=== PATIENT | female | born 1970 | race Caucasian/White ===

== ENCOUNTER 2017-06-23 16:18 | Emergency (ER) | payer BC, OTHER ==
--- NOTE | 2017-06-23 17:20 | EDM.PDOC ---
<Saad aBrillas J - Last Filed: 06/23/17 17:19> ED HPI GENERAL MEDICAL PROBLEM - General Chief Complaint: Abdominal Pain Stated Complaint: SEVERE ABDOMINAL/BACK PAIN Time Seen by Provider: 06/23/17 17:10 - History of Present Illness INITIAL COMMENTS - FREE TEXT/NARRATIVE: HISTORY AND PHYSICAL: History of present illness: Patient 46-year-old female presents with concern of epigastric and right upper quadrant pain it's been intermittent over last 4-6 months she's had proximal 77 episodes no fever chills nausea vomiting or other complaints today's episode has improved since arrival. Review of systems: As per history of present illness and below otherwise all systems reviewed and negative. Past medical history: As per history of present illness and as reviewed below otherwise noncontributory. Surgical history: As per history of present illness and as reviewed below otherwise noncontributory. Social history: No reported history of drug or alcohol abuse. Family history: As per history of present illness and as reviewed below otherwise noncontributory. Physical exam: HEENT: Atraumatic, normocephalic, pupils reactive, negative for conjunctival pallor or scleral icterus, mucous membranes moist, throat clear, neck supple, nontender, trachea midline. Lungs: Clear to auscultation, breath sounds equal bilaterally, chest nontender. Heart: S1S2, regular, negative for clicks, rubs, or JVD. Abdomen: Soft, nondistended, mild tenderness in the epigastric right upper quadrant to deep palpation. Negative for masses or hepatosplenomegaly. Negative for costovertebral tenderness. Pelvis: Stable nontender. Genitourinary: Deferred. Rectal: Deferred. Extremities: Atraumatic, negative for cords or calf pain. Neurovascular unremarkable. Neuro: Awake, alert, oriented. Cranial nerves II through XII unremarkable. Cerebellum unremarkable. Motor and sensory unremarkable throughout. Exam nonfocal. Diagnostics: CBC CMP amylase lipase UA hCG abdominal ultrasound Therapeutics: None Impression: 1 intermittent upper abdominal pain etiology to be determined rule out biliary colic Definitive disposition and diagnosis as appropriate pending reevaluation and review of above. Right Upper Abdomen Pain Score (Numeric/FACES): 6 - Related Data Allergies Allergy/AdvReac Type Severity Reaction Status Date / Time No Known Allergies Allergy Verified 06/23/17 16:50 Home Meds: Home Meds . [No Known Home Meds] 04/30/14 [History] Past Medical History HEENT History: Reports: None Cardiovascular History: Reports: None Respiratory History: Reports: None Gastrointestinal History: Reports: None Neurological History: Reports: None Psychiatric History: Reports: None Endocrine/Metabolic History: Reports: None Hematologic History: Reports: None Immunologic History: Reports: None Oncologic (Cancer) History: Reports: None Dermatologic History: Reports: None - Infectious Disease History Infectious Disease History: Reports: Chicken Pox - Past Surgical History Head Surgeries/Procedures: Reports: None HEENT Surgical History: Reports: None Cardiovascular Surgical History: Reports: None GI Surgical History: Reports: None Female Surgical History: Reports: D&C, Tubal Ligation Endocrine Surgical History: Reports: None Neurological Surgical History: Reports: None Musculoskeletal Surgical History: Reports: 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) Other Musculoskeletal Surgeries/Procedures:: shoulder surgery Oncologic Surgical History: Reports: None Social & Family History - Family History Family Medical History: Noncontributory - Tobacco Use Smoking Status *Q: Current Every Day Smoker Years of Tobacco use: 25 Packs/Tins Daily: 0.5 Used Tobacco, but Quit: No Second Hand Smoke Exposure: Yes - Caffeine Use Caffeine Use: Reports: Coffee - Alcohol Use Days Per Week of Alcohol Use: 2 Number of Drinks Per Day: 3 Total Drinks Per Week: 6 - Recreational Drug Use Recreational Drug Use: No ED ROS GENERAL - Review of Systems Review Of Systems: ROS reveals no pertinent complaints other than HPI. ED EXAM, GENERAL - Physical Exam Exam: See Below (See dictation) Course - Vital Signs Last Recorded V/S: Last Vital Signs Temp 99 F 06/23/17 19:18 Pulse 87 06/23/17 16:47 Resp 18 06/23/17 16:47 BP 127/90 06/23/17 16:47 Pulse Ox 99 06/23/17 16:47 - Orders/Labs/Meds Orders: Active Orders 24 hr Category Date Time Status Abdomen Ltd [US] Stat Exams 06/23/17 17:15 Taken UA W/MICROSCOPIC [URIN] Stat Lab 06/23/17 19:12 Results Labs: Laboratory Tests 06/23/17 06/23/17 06/23/17 Range/Units 17:20 17:20 17:20 WBC 5.32 (4.0-11.0) K/uL RBC 4.40 (4.30-5.90) M/uL Hgb 13.1 (12.0-16.0) g/dL Hct 38.0 (36.0-46.0) % MCV 86.4 (80.0-98.0) fL MCH 29.8 (27.0-32.0) pg MCHC 34.5 (31.0-37.0) g/dL RDW Std Deviation 41.4 (28.0-62.0) fl RDW Coeff of Kellie 13 (11.0-15.0) % Plt Count 161 (150-400) K/uL MPV 11.50 (7.40-12.00) fL Neut % (Auto) 63.8 (48.0-80.0) % Lymph % (Auto) 25.2 (16.0-40.0) % [place] % (Auto) 8.5 (0.0-15.0) % Eos % (Auto) 1.7 (0.0-7.0) % Baso % (Auto) 0.8 (0.0-1.5) % Neut # (Auto) 3.4 (1.4-5.7) K/uL Lymph # (Auto) 1.3 (0.6-2.4) K/uL [place] # (Auto) 0.5 (0.0-0.8) K/uL Eos # (Auto) 0.1 (0.0-0.7) K/uL Baso # (Auto) 0.0 (0.0-0.1) K/uL Nucleated RBC % 0.0 /100WBC Nucleated RBCs # 0 K/uL Sodium 139 (136-146) mmol/L Potassium 3.9 (3.5-5.1) mmol/L Chloride 108 (98-110) mmol/L Carbon Dioxide 24 (21-31) mmol/L BUN 11 (6.0-23.0) mg/dL Creatinine 0.7 (0.6-1.5) mg/dL Est Cr Clr Drug Dosing 91.32 mL/min Estimated GFR (MDRD) > 60.0 ml/min Glucose 94 (60-110) mg/dL Calcium 9.7 (8.8-10.8) mg/dL Total Bilirubin 0.4 (0.1-1.5) mg/dL AST 13 (5-40) IU/L ALT 9 (8-54) IU/L Alkaline Phosphatase 35 L (40-150) Total Protein 6.7 (6.0-8.0) g/dL Albumin 4.3 (3.5-5.0) g/dL Globulin 2.4 (2.0-3.5) g/dL Albumin/Globulin Ratio 1.8 (1.3-2.8) Amylase 38 (10-90) U/L HCG, Qual NEGATIVE (NEG) Urine Color Urine Appearance Urine pH (5.0-8.0) Ur Specific [place] (1.001-1.035) Urine Protein (NEGATIVE) mg/dL Urine Glucose (UA) (NEGATIVE) mg/dL Urine Ketones (NEGATIVE) mg/dL Urine Occult Blood (NEGATIVE) Urine Nitrite (NEGATIVE) Urine Bilirubin (NEGATIVE) Urine Urobilinogen (<2.0) EU/dL Ur Leukocyte Esterase (NEGATIVE) 06/23/17 Range/Units 19:12 WBC (4.0-11.0) K/uL RBC (4.30-5.90) M/uL Hgb (12.0-16.0) g/dL Hct (36.0-46.0) % MCV (80.0-98.0) fL MCH (27.0-32.0) pg MCHC (31.0-37.0) g/dL RDW Std Deviation (28.0-62.0) fl RDW Coeff of Kellie (11.0-15.0) % Plt Count (150-400) K/uL MPV (7.40-12.00) fL Neut % (Auto) (48.0-80.0) % Lymph % (Auto) (16.0-40.0) % [place] % (Auto) (0.0-15.0) % Eos % (Auto) (0.0-7.0) % Baso % (Auto) (0.0-1.5) % Neut # (Auto) (1.4-5.7) K/uL Lymph # (Auto) (0.6-2.4) K/uL [place] # (Auto) (0.0-0.8) K/uL Eos # (Auto) (0.0-0.7) K/uL Baso # (Auto) (0.0-0.1) K/uL Nucleated RBC % /100WBC Nucleated RBCs # K/uL Sodium (136-146) mmol/L Potassium (3.5-5.1) mmol/L Chloride (98-110) mmol/L Carbon Dioxide (21-31) mmol/L BUN (6.0-23.0) mg/dL Creatinine (0.6-1.5) mg/dL Est Cr Clr Drug Dosing mL/min Estimated GFR (MDRD) ml/min Glucose (60-110) mg/dL Calcium (8.8-10.8) mg/dL Total Bilirubin (0.1-1.5) mg/dL AST (5-40) IU/L ALT (8-54) IU/L Alkaline Phosphatase (40-150) Total Protein (6.0-8.0) g/dL Albumin (3.5-5.0) g/dL Globulin (2.0-3.5) g/dL Albumin/Globulin Ratio (1.3-2.8) Amylase (10-90) U/L HCG, Qual (NEG) Urine Color YELLOW Urine Appearance CLEAR Urine pH 6.0 (5.0-8.0) Ur Specific [place] <= 1.005 (1.001-1.035) Urine Protein NEGATIVE (NEGATIVE) mg/dL Urine Glucose (UA) NEGATIVE (NEGATIVE) mg/dL Urine Ketones NEGATIVE (NEGATIVE) mg/dL Urine Occult Blood MODERATE (NEGATIVE) Urine Nitrite NEGATIVE (NEGATIVE) Urine Bilirubin NEGATIVE (NEGATIVE) Urine Urobilinogen 0.2 (<2.0) EU/dL Ur Leukocyte Esterase NEGATIVE (NEGATIVE) Departure - Departure Disposition: Home, Self-Care 01 Clinical Impression: Biliary colic symptom, Abdominal pain - Discharge Information Referrals: PCP,None [Primary Care Provider] - Forms: ED Department Discharge Additional Instructions: You will require HIDA scan testing to complete her diagnosis, this will be arranged due to being a Saturday night we will schedule test and coordinate a time that will work for you within the next week and follow-up with her general surgeon Dr. Larsen, general surgery, has been contacted and assisted in developing this plan his clinic can be reached at the number below [facility] Professional [address], [address] [place] [address] Avoid greasy foods [place] diet as discussed Return if symptoms persist or worsen The following information is given to patients seen in the emergency department who are being discharged to home. This information is to outline your options for follow-up care. We provide all patients seen in our emergency department with a follow-up referral. The need for follow-up, as well as the timing and circumstances, are variable depending upon the specifics of your emergency department visit. If you don't have a primary care physician on staff, we will provide you with a referral. We always advise you to contact your personal physician following an emergency department visit to inform them of the circumstance of the visit and for follow-up with them and/or the need for any referrals to a consulting specialist. The emergency department will also refer you to a specialist when appropriate. This referral assures that you have the opportunity for follow-up care with a specialist. All of these measure are taken in an effort to provide you with optimal care, which includes your follow-up. Under all circumstances we always encourage you to contact your private physician who remains a resource for coordinating your care. When calling for follow-up care, please make the office aware that this follow-up is from your recent emergency room visit. If for any reason you are refused follow-up, please contact the [facility] emergency department at and asked to speak to the emergency department charge nurse. <Chavez Faust - Last Filed: 06/23/17 19:44> ED HPI GENERAL MEDICAL PROBLEM - History of Present Illness INITIAL COMMENTS - FREE TEXT/NARRATIVE: Patient presents as above Over a prolonged ER stay pain is resolved 0 out of 10 at current no fever nausea vomiting chills sweats no chest pain shortness breath headache dizziness palpitation no bowel or urine symptoms Gen. 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 Larsen, I did speak with Dr. Larsen and plan was plan was formulated HEENT grossly within normal limits Departure - Departure Time of Disposition: 19:40 Condition: Good
[2017-06-23 17:59] LABS: CHLORIDE,CL 108 mmol/L (98-110); SODIUM,NA 139 mmol/L (136-146)
[2017-06-24 03:25] VITALS: BP 117/87
--- NOTE | 2017-06-24 19:22 | US ---
EXAM DATE: 06/23/17 PATIENT'S AGE: 46 Patient: SYDNI ORETGA Facility: [place], [place] Site . Site : [id number] Study: US Abdomen [id number] 6:48:31 PM Ordering Physician: Nargis Nash Final Report: INDICATION: Right upper quadrant pain. COMPARISON: None. TECHNIQUE: Transabdominal. FINDINGS: Visualized pancreas is normal. Aorta is non aneurysmal. Gallbladder is contracted. No filling defect. Reportedly positive sonographic Singh sign. Common bile duct 4 mm of the jahaira hepatis. Normal liver size. Upper normal echogenicity. Slightly coarse appearance. Inferior vena cava is patent. Right kidney is sonographically normal. Right kidney normal other than small parapelvic cyst. IMPRESSION: Mild probable hepatic steatosis. Contracted gallbladder. No cholelithiasis. Positive sonographic Singh`s sign reported is equivocal given contraction. Dictated by Bari Goldsmith MD @ Jun 23 2017 6:55PM (Electronic Signature) Report Signed by Proxy. MANJU
== END 2017-06-23 19:58 | disposition home or self-care (01) ==
LOC: MW.ED 16:18
DX: K80.50 Calculus of bile duct without cholangitis or cholecystitis without obstruction (principal); F17.210 Nicotine dependence, cigarettes, uncomplicated
CPT/HCPCS: 36415; 76705; 76705-26; 80053; 81001; 82150; 84703; 85025; 99284; 99284-25

== ENCOUNTER → 2017-07-11 | Day surgery (SDC) | payer BC ==
[~2017-07-11] MED LIST: Lactated Ringers 1,000 ML IV SCH; Scopolamine 1.5 MG Transdermal Patch ONE; Scopolamine 1.5 MG Transdermal Patch TRDERM PRN; Sodium Chloride 0.9% 10 ML Syringe FLUSH PRN; Sodium Chloride 0.9% 2.5 ML Syringe FLUSH PRN; ceFAZolin 2 GM in Premix Bag 1 BAG IV ONE
[2017-07-11 06:53] VITALS: BP 120/76
--- NOTE | 2017-07-11 07:05 | PCM.PREANE ---
Preanesthetic Assessment - Anesthesia/Transfusion/Family Hx Anesthesia History: Prior Anesthesia Without Reaction Family History of Anesthesia Reaction: Yes Transfusion History: Prior Transfusion Without Reaction Intubation History: Unknown - Review of Systems General: No Symptoms Pulmonary: No Symptoms Cardiovascular: No Symptoms Gastrointestinal: Abdominal Pain Neurological: No Symptoms Other: Reports: None - Physical Assessment O2 Sat by Pulse Oximetry: 98 Respiratory Rate: 16 Vital Signs: Last Vital Signs Temp 36.4 C 07/11/17 06:51 Pulse 71 07/11/17 06:51 Resp 16 07/11/17 06:51 BP 120/76 07/11/17 06:51 Pulse Ox 98 07/11/17 06:51 Height: 1.68 m Weight: 68.039 kg ASA Class: 2 Mental Status: Alert & Oriented x3 Airway Class: Mallampati = 2 Dentition: Reports: Normal Dentition (small chip on the back of front upper ( right) incisor) Thyro-Mental Finger Breadths: 3 Mouth Opening Finger Breadths: 3 ROM/Head Extension: Full Lungs: Clear to Auscultation, Normal Respiratory Effort Cardiovascular: Regular Rate, Regular Rhythm - Allergies Allergies/Adverse Reactions: Allergies Allergy/AdvReac Type Severity Reaction Status Date / Time No Known Allergies Allergy Verified 07/08/17 10:35 - Blood Blood Available: No - Anesthesia Plan Pre-Op Medication Ordered: None - Acknowledgements Anesthesia Type Planned: General Anesthesia Pt an Appropriate Candidate for the Planned Anesthesia: Yes Alternatives and Risks of Anesthesia Discussed w Pt/Guardian: Yes Pt/Guardian Understands and Agrees with Anesthesia Plan: Yes PreAnesthesia Questionnaire HEENT History: Reports: 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) Other HEENT History: wears glasses Cardiovascular History: Reports: None Respiratory History: Reports: None Gastrointestinal History: Reports: 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) Other Gastrointestinal History: epigastric pain, hx colitis,cholecystitis Genitourinary History: Reports: None 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: , 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) Other OB/BYN History: hx post bleed Musculoskeletal History: Reports: Fracture, 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) Other Musculoskeletal History: hx fx lt hand and fx ankle Neurological History: Reports: Concussion Psychiatric History: Reports: Anxiety Endocrine/Metabolic History: Reports: 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) Other Endocrine/Metabolic History: hx nodule on thyroid Hematologic History: Reports: Blood Transfusion(s), 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) Other Hematologic History: bleeds easily Immunologic History: Reports: None Oncologic (Cancer) History: Reports: None Dermatologic History: Reports: None - Infectious Disease History Infectious Disease History: Reports: Chicken Pox - Past Surgical History Head Surgeries/Procedures: Reports: None HEENT Surgical History: Reports: None Cardiovascular Surgical History: Reports: None GI Surgical History: Reports: None Female Surgical History: Reports: Cervical Conization, D&C, Tubal Ligation Endocrine Surgical History: Reports: None Neurological Surgical History: Reports: None Musculoskeletal Surgical History: Reports: 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) Other Musculoskeletal Surgeries/Procedures:: left shoulder surgery for torn tendon Oncologic Surgical History: Reports: None - SUBSTANCE USE Smoking Status *Q: Current Every Day Smoker (< 1ppd) Tobacco Use Within Last Twelve Months: Cigarettes Second Hand Smoke Exposure: Yes Days Per Week of Alcohol Use: 2 Number of Drinks Per Day: 3 Total Drinks Per Week: 6 Recreational Drug Use History: No - HOME MEDS Home Medications: Home Meds Acetaminophen/oxyCODONE [Percocet 325-5 MG] 1 tab PO ASDIRECTED PRN 07/08/17 [ History] - CURRENT (IN HOUSE) MEDS Current Meds: Current Medications Lactated Ringer's (Ringers, Lactated) 1,000 mls @ 125 mls/hr IV ASDIRECTED JASON Last Admin: 07/11/17 06:46 Dose: 125 mls/hr Sodium Chloride (Saline Flush) 10 ml FLUSH ASDIRECTED PRN PRN Reason: Keep Vein Open Sodium Chloride (Saline Flush) 2.5 ml FLUSH ASDIRECTED PRN PRN Reason: Keep Vein Open Discontinued Medications Cefazolin Sodium/Dextrose 2 gm (/ Premix) 50 mls @ 100 mls/hr IV ONETIME ONE Stop: 07/06/17 11:35
== END ==
LOC: MW.SDS 06:28
PROVIDERS: ATTEND Surgery
DX: Z53.8 Procedure and treatment not carried out for other reasons (principal); F41.9 Anxiety disorder, unspecified; F17.210 Nicotine dependence, cigarettes, uncomplicated; Z79.899 Other long term (current) drug therapy
CPT/HCPCS: 81025; A9270; J7120

== ENCOUNTER 2017-07-26 06:06 | Day surgery (SDC) | payer BC ==
[~2017-07-26 06:06] MED LIST changes: -Scopolamine 1.5 MG Transdermal Patch ONE; -Scopolamine 1.5 MG Transdermal Patch TRDERM PRN
[2017-07-26] MEDS ORDERED: Scopolamine 1.5 MG Transdermal Patch TRDERM PRN (06:58)
[2017-07-26] MEDS ORDERED: Propofol 200 MG/20 ML SDV ONE (07:13)
[2017-07-26] MEDS ORDERED: Midazolam 1 MG/ML 2 ML SDV ONE (07:13)
[2017-07-26] MEDS ORDERED: Dexamethasone 4 MG/ML 5 ML MDV ONE (07:13)
[2017-07-26] MEDS ORDERED: fentaNYL 100 MCG/2 ML SDV ONE ×2 (07:13→08:12)
[2017-07-26] MEDS ORDERED: Ondansetron 4 MG/2 ML SDV ONE (07:13)
[2017-07-26] MEDS ORDERED: Neostigmine Methylsulfate 1 MG/ML 5 ML Syringe ONE (07:14)
[2017-07-26] MEDS ORDERED: Succinylcholine/Normal Saline 200 MG/10 ML Syringe ONE (07:14)
[2017-07-26] MEDS ORDERED: Rocuronium 10 MG/ML 10 ML Syringe ONE (07:14)
[2017-07-26] MEDS ORDERED: Glycopyrrolate 0.2 MG/ML SDV ONE (07:14)
[2017-07-26] MEDS ORDERED: ceFAZolin/Dextrose,Iso-Osmotic 2 GM/50 ML Duplex Bag IV ONE (07:17)
--- NOTE | 2017-07-26 07:28 | PCM.PREANE ---
Preanesthetic Assessment - Anesthesia/Transfusion/Family Hx Anesthesia History: Prior Anesthesia Without Reaction Family History of Anesthesia Reaction: No Transfusion History: No Prior Transfusion(s) Intubation History: Unknown - Review of Systems General: No Symptoms Pulmonary: No Symptoms Cardiovascular: No Symptoms Gastrointestinal: No Symptoms Neurological: No Symptoms Other: Reports: None - Physical Assessment O2 Sat by Pulse Oximetry: 97 Respiratory Rate: 16 Vital Signs: Last Vital Signs Temp 36.7 C 07/26/17 06:28 Pulse 71 07/26/17 06:28 Resp 16 07/26/17 06:28 BP 116/66 07/26/17 06:28 Pulse Ox 97 07/26/17 06:28 Height: 1.68 m Weight: 68.039 kg ASA Class: 2 Mental Status: Alert & Oriented x3 Airway Class: Mallampati = 2 Dentition: Reports: Normal Dentition Thyro-Mental Finger Breadths: 3 Mouth Opening Finger Breadths: 3 ROM/Head Extension: Full Lungs: Clear to Auscultation, Normal Respiratory Effort Cardiovascular: Regular Rate, Regular Rhythm - Lab Values: Laboratory Last Values Urine HCG, Qual NEGATIVE (NEGATIVE) 07/26/17 06:20 - Allergies Allergies/Adverse Reactions: Allergies Allergy/AdvReac Type Severity Reaction Status Date / Time No Known Allergies Allergy Verified 07/25/17 09:08 - Blood Blood Available: No - Anesthesia Plan Pre-Op Medication Ordered: None - Acknowledgements Anesthesia Type Planned: General Anesthesia Pt an Appropriate Candidate for the Planned Anesthesia: Yes Alternatives and Risks of Anesthesia Discussed w Pt/Guardian: Yes Pt/Guardian Understands and Agrees with Anesthesia Plan: Yes PreAnesthesia Questionnaire HEENT History: Reports: 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) Other HEENT History: wears glasses Cardiovascular History: Reports: None Respiratory History: Reports: None Gastrointestinal History: Reports: 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) Other Gastrointestinal History: epigastric pain, hx colitis,cholecystitis Genitourinary History: Reports: None 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: , 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) Other OB/BYN History: hx post bleed Musculoskeletal History: Reports: Fracture Other Musculoskeletal History: hx fx lt hand and fx ankle Neurological History: Reports: Concussion Psychiatric History: Reports: Anxiety Endocrine/Metabolic History: Reports: 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) Other Endocrine/Metabolic History: hx nodule on thyroid Hematologic History: Reports: Blood Transfusion(s), 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) Other Hematologic History: bleeds easily Immunologic History: Reports: None Oncologic (Cancer) History: Reports: None Dermatologic History: Reports: None - Infectious Disease History Infectious Disease History: Reports: Chicken Pox - Past Surgical History Head Surgeries/Procedures: Reports: None HEENT Surgical History: Reports: None Cardiovascular Surgical History: Reports: None GI Surgical History: Reports: None Female Surgical History: Reports: Cervical Conization, D&C, Tubal Ligation Endocrine Surgical History: Reports: None Neurological Surgical History: Reports: None Musculoskeletal Surgical History: Reports: Shoulder Surgery Other Musculoskeletal Surgeries/Procedures:: left shoulder surgery for torn tendon Oncologic Surgical History: Reports: None - SUBSTANCE USE Smoking Status *Q: Current Every Day Smoker Tobacco Use Within Last Twelve Months: Cigarettes Second Hand Smoke Exposure: Yes Days Per Week of Alcohol Use: 2 Number of Drinks Per Day: 3 Total Drinks Per Week: 6 Recreational Drug Use History: No - HOME MEDS Home Medications: Home Meds Acetaminophen/oxyCODONE [Percocet 325-5 MG] 1 tab PO ASDIRECTED PRN 07/08/17 [ History] - CURRENT (IN HOUSE) MEDS Current Meds: Current Medications Lactated Ringer's (Ringers, Lactated) 1,000 mls @ 125 mls/hr IV ASDIRECTED JASON Last Admin: 07/26/17 06:23 Dose: 125 mls/hr Scopolamine (Transderm-Scop) 1.5 mg TRDERM Q72H PRN PRN Reason: Nausea Last Admin: 07/26/17 07:10 Dose: 1.5 mg Sodium Chloride (Saline Flush) 10 ml FLUSH ASDIRECTED PRN PRN Reason: Keep Vein Open Sodium Chloride (Saline Flush) 2.5 ml FLUSH ASDIRECTED PRN PRN Reason: Keep Vein Open Discontinued Medications Cefazolin Sodium/Dextrose (Ancef) Confirm Administered Dose 2 gm IV .STK-MED ONE Stop: 07/26/17 07:18 Dexamethasone (Dexamethasone) Confirm Administered Dose 20 mg .ROUTE .STK-MED ONE Stop: 07/26/17 07:14 Fentanyl (Sublimaze) Confirm Administered Dose 100 mcg .ROUTE .STK-MED ONE Stop: 07/26/17 07:14 Glycopyrrolate (Robinul) Confirm Administered Dose 0.6 mg .ROUTE .STK-MED ONE Stop: 07/26/17 07:15 Cefazolin Sodium/Dextrose 2 gm (/ Premix) 50 mls @ 100 mls/hr IV ONETIME ONE Stop: 07/24/17 17:24 Lidocaine HCl (Xylocaine-Mpf 1%) Confirm Administered Dose 5 ml .ROUTE .STK-MED ONE Stop: 07/26/17 07:14 Midazolam HCl (Versed 1 Mg/Ml) Confirm Administered Dose 2 mg .ROUTE .STK-MED ONE Stop: 07/26/17 07:14 Neostigmine Methylsulfate (Neostigmine) Confirm Administered Dose 5 mg .ROUTE .STK-MED ONE Stop: 07/26/17 07:15 Ondansetron HCl (Zofran) Confirm Administered Dose 4 mg .ROUTE .STK-MED ONE Stop: 07/26/17 07:14 Propofol (Diprivan 20 Ml) Confirm Administered Dose 200 mg .ROUTE .STK-MED ONE Stop: 07/26/17 07:14 Rocuronium [place] (Zemuron) Confirm Administered Dose 100 mg .ROUTE .STK-MED ONE Stop: 07/26/17 07:15 Succinylcholine Chloride (Succinylcholine In Ns Pf) Confirm Administered Dose 200 mg .ROUTE .STK-MED ONE Stop: 07/26/17 07:15
[2017-07-26] MEDS ORDERED: ceFAZolin 1 GM Vial ONE (07:34)
[2017-07-26] MEDS ORDERED: Bupivacaine 0.5% 30 ML SDV ONE (07:34)
--- NOTE | 2017-07-26 09:54 | PCM.OPNOTE ---
- General Post-Op/Procedure Note Date of Surgery/Procedure: 07/26/17 Operative Procedure(s): Laparoscopic cholecystectomy and lysis of adhesions Findings: Intra-abdominal adhesions, normal appearing gallbladder Pre Op Diagnosis: Biliary dyskinesia Post-Op Diagnosis: Biliary dyskinesia Anesthesia Technique: General ET Tube Primary Surgeon: Nano Guevara Secondary Surgeon: Marco Hazel Fluid Replacement, Intraop: 1,600 Output, Urine Amount: 100 EBL in mLs: 20 Condition: Good
--- NOTE | 2017-07-26 09:58 | PCM.OPNOTE ---
- General Post-Op/Procedure Note Date of Surgery/Procedure: 07/26/17 Operative Procedure(s): laparoscopic cholecystectomy Pre Op Diagnosis: biliary dyskinesia Post-Op Diagnosis: biliary dyskinesia s/p cholecystectomy Primary Surgeon: Nano Guevara Secondary Surgeon: Marco Hazel Fluid Replacement, Intraop: 1,600 Output, Urine Amount: 100 EBL in mLs: 20 Complications: none Condition: Good
[2017-07-26] MEDS: fentaNYL 100 MCG/2 ML SDV IVPUSH PRN ×2 (10:10→10:16)
--- NOTE | 2017-07-26 11:05 | PCM.POSTAN ---
POST ANESTHESIA ASSESSMENT - MENTAL STATUS Mental Status: Alert, Oriented - RESPIRATORY Respiratory Status: Respiratory Rate WNL, Airway Patent, O2 Saturation Stable - CARDIOVASCULAR CV Status: Pulse Rate WNL, Blood Pressure Stable - GASTROINTESTINAL GI Status: No Symptoms - PAIN Pain Score: 1 - POST OP HYDRATION Hydration Status: Adequate & Stable - OBSERVATIONS Free Text/Narrative:: no anesthesia problems
--- NOTE | 2017-07-26 12:07 | PCM48HPAN ---
Post Anesthesia Note - EVALUATION WITHIN 48HRS OF ANESTHETIC Vital Signs in Normal Range: Yes Patient Participated in Evaluation: Yes Respiratory Function Stable: Yes Airway Patent: Yes Cardiovascular Function Stable: Yes Hydration Status Stable: Yes Pain Control Satisfactory: Yes Nausea and Vomiting Control Satisfactory: Yes Mental Status Recovered: Yes Resp Rate: 12 - COMMENTS/OBSERVATIONS Free Text/Narrative:: no anesthesia problems
[2017-07-26 12:13] VITALS: BP 120/67
--- NOTE | 2017-07-26 14:15 | OR ---
SURGEON: KADE GRANT MD DATE OF PROCEDURE: 07/26/2017 PREOPERATIVE DIAGNOSIS: Biliary dyskinesia. POSTOPERATIVE DIAGNOSES: 1. Biliary dyskinesia. 2. Intraabdominal adhesions. PROCEDURES PERFORMED: 1. Lysis of adhesions. 2. Laparoscopic cholecystectomy. DIET TECH: Marco Hazel ANESTHESIA: General endotracheal anesthesia. FLUID: 1600 mL of crystalloid. ESTIMATED BLOOD LOSS: 20 mL. URINE OUTPUT: 100 mL. FINDINGS: Adhesions of liver and gallbladder to the surrounding omentum and bowel. Otherwise, normal-appearing gallbladder. COMPLICATIONS: None. INDICATIONS: The patient is a 47-year-old female, who presents with biliary dyskinesia. The patient and I discussed the need for a laparoscopic possible open cholecystectomy. Should I be unable to perform this safely laparoscopically, we will convert to open. We discussed the procedures, expected perioperative course for each, as well as the risks including bleeding, infection, or damage to surrounding structures. The patient verbalized understanding and wishes to proceed. PROCEDURE IN DETAIL: The patient was brought into the OR and placed on the OR table in supine position. A time-out was completed verifying the patient's name, age, date of , allergies, and procedure to be performed. General endotracheal anesthetic was then induced. The left arm was tucked at the patient's side and a Betancur catheter was placed. The abdomen was prepped and draped in usual standard fashion. The infraumbilical fold was anesthetized with 0.5% Marcaine plain. An 11 blade was used to make an incision along this fold. Cautery was used to dissect down to the subcutaneous fat. The subcutaneous fat was bluntly dissected down to the level of the fascia. The fascia was elevated with Lisa's and incised sharply with the Metzenbaum scissors. The peritoneum was elevated with tonsils and incised sharply with Metzenbaum scissors. Two stay sutures were placed on either side of the fascia. These sutures were 0 Vicryl. A 12 mm Meryl trocar was inserted in the abdomen and the abdomen insufflated to a pressure of 13 mmHg. The patient was then placed in reverse Trendelenburg position and airplaned slightly to the left. The ports were placed in the following locations under direct visualization, one in the epigastric area, one along the right flank, and two fingerbreadths below the right subcostal margin in the midclavicular line. The dome of the gallbladder was obscured by adhesions. These were taken down with a combination of hook cautery and laparoscopic scissors. Once I was able to see the dome of the gallbladder adequately, I grasped it with an atraumatic grasper from the right lateral flank port and elevated above the dome of the liver. There were several other adhesions along the body of the gallbladder to both omentum and small bowel. These were taken down using gentle blunt dissection. I was able to then identify the infundibulum. It was grasped with an atraumatic grasper through the subcostal port, and retracted to the right in the inferior. The peritoneal fat overlying the cystic duct and artery was taken down using a combination of hook cautery, Elsa dissector, and suction. Once my critical view was achieved, I doubly clipped and ligated my cystic duct and artery. Electrocautery was then used to take the gallbladder off the remainder of the gallbladder fossa. The gallbladder was then placed in an EndoCatch bag and removed through the infraumbilical port site. The 12 mm Meryl trocar was placed back in the abdomen and I inspected my operative field. Appeared to be hemostatic with no evidence of bile leakage. I irrigated the abdomen with 500 mL of normal saline until it ran clear. The 5 mm trocars were then removed under direct visualization, and the abdomen was allowed to desufflate. The 12 mm trocar was then removed as well. The fascia at the infraumbilical site was closed with interrupted 0 Vicryl sutures. The wound was then closed with interrupted 3-0 Vicryl, then subcuticular fat in a running 4-0 Monocryl stitch in the subcuticular space. The 5 mm trocar sites were all closed with interrupted 4-0 Monocryl sutures. Steri-Strips and sterile dressings were applied. The patient tolerated the procedure well and was taken to PACU in stable condition. ANALIA FAN /[id number]
== END 2017-07-26 11:57 | disposition home or self-care (01) ==
LOC: MW.SDS 06:06
PROVIDERS: ATTEND Surgery
DX: K81.1 Chronic cholecystitis (principal); K66.0 Peritoneal adhesions (postprocedural) (postinfection); F17.210 Nicotine dependence, cigarettes, uncomplicated
CPT/HCPCS: 47562; 81025; 88304; A9270; J1100; J2250; J2405; J3010; J7120; 00790; J0690; J2704

== ENCOUNTER 2019-06-14 19:37 | Emergency (ER) | payer OTHER ==
[2019-06-14 20:16] VITALS: BP 132/73; PULSE 77
[2019-06-14] MEDS ORDERED: Ketorolac 60 MG/2 ML SDV IM ONE (20:21)
--- NOTE | 2019-06-14 20:22 | EDM.PDOC ---
ED HPI GENERAL MEDICAL PROBLEM - General Chief Complaint: Back Pain or Injury Stated Complaint: SEVERE BACK PAIN Time Seen by Provider: 06/14/19 20:21 Source of Information: Reports: Patient History Limitations: Reports: No Limitations - History of Present Illness INITIAL COMMENTS - FREE TEXT/NARRATIVE: HISTORY AND PHYSICAL: History of present illness: Patient is a 48-year-old female presents to the ED with complaint of back pain. She states she has history of back pain on and off due to a bulge at L4 and L5. She states over the past 4 days she has been having severe pain and not able to find a comfortable position. She denies any injury or trauma. She states the pain is across her low back but mostly on the left and radiates to her left hip and down her lateral legs. She denies fevers, chills, nausea, vomiting, dysuria , bowel or bladder incontinence, lower extremity weakness. Review of systems: As per history of present illness and below otherwise all systems reviewed and negative. Past medical history: As per history of present illness and as reviewed below otherwise noncontributory. Surgical history: As per history of present illness and as reviewed below otherwise noncontributory. Social history: No reported history of drug or alcohol abuse. Family history: As per history of present illness and as reviewed below otherwise noncontributory. Physical exam: General: Patient sitting comfortably in no acute distress and nontoxic appearing HEENT: Atraumatic, normocephalic, pupils reactive, negative for conjunctival pallor or scleral icterus, mucous membranes moist, throat clear, neck supple, nontender, trachea midline. No meningeal signs. Lungs: Clear to auscultation, breath sounds equal bilaterally, chest nontender. Heart: S1S2, regular, negative for clicks, rubs, or overt murmur. Abdomen: Soft, nondistended, nontender. Negative for masses or hepatosplenomegaly. Negative for costovertebral tenderness. No rigidity, rebound , guarding. Pelvis: Stable nontender. Genitourinary: Deferred. Rectal: Deferred. Spine: No vertebral tenderness or step offs to palpation. Pain to palpation of left lumbar paraspinals. Extremities: Atraumatic, negative for cords or calf pain. Neurovascular unremarkable. Neuro: Awake, alert, oriented. Cranial nerves II through XII unremarkable. Cerebellum unremarkable. Motor and sensory unremarkable throughout. Exam nonfocal. Notes: Diagnostics: declined Therapeutics: 60mg Toradol IM 60mg Norflex IM Prescriptions: Impression: Lumbar back pain Plan: Take medications as instructed, do not take while driving as it may make you drowsy Follow up with primary care provider Return to ED as needed as discussed Definitive disposition and diagnosis as appropriate pending reevaluation and review of above. Lower Back Pain Score (Numeric/FACES): 10 - Related Data Allergies Allergy/AdvReac Type Severity Reaction Status Date / Time No Known Allergies Allergy Verified 06/14/19 20:16 Home Meds: Home Meds . [No Known Home Meds] 06/14/19 [History] Past Medical History HEENT History: Reports: 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) Other HEENT History: wears glasses Cardiovascular History: Reports: None Respiratory History: Reports: None Gastrointestinal History: Reports: 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) Other Gastrointestinal History: epigastric pain, hx colitis,cholecystitis Genitourinary History: Reports: None TRANSPLANT NURSE History: Reports: 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), Other TRANSPLANT NURSE History: hx post bleed Musculoskeletal History: Reports: Back Pain, Chronic, Fracture, 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 ) Other Musculoskeletal History: hx fx lt hand and fx ankle, spinal stenosis Neurological History: Reports: Concussion Psychiatric History: Reports: Anxiety Endocrine/Metabolic History: Reports: 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) Other Endocrine/Metabolic History: hx nodule on thyroid Hematologic History: Reports: Blood Transfusion(s), 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) Other Hematologic History: bleeds easily Immunologic History: Reports: None Oncologic (Cancer) History: Reports: None Dermatologic History: Reports: None - Infectious Disease History Infectious Disease History: Reports: None - Past Surgical History Head Surgeries/Procedures: Reports: None HEENT Surgical History: Reports: None Cardiovascular Surgical History: Reports: None GI Surgical History: Reports: Cholecystectomy Female Surgical History: Reports: Cervical Conization, D&C, Tubal Ligation Endocrine Surgical History: Reports: None Neurological Surgical History: Reports: None Musculoskeletal Surgical History: Reports: Shoulder Surgery Other Musculoskeletal Surgeries/Procedures:: left shoulder surgery for torn tendon Oncologic Surgical History: Reports: None Social & Family History - Family History Family Medical History: Noncontributory - Tobacco Use Smoking Status *Q: Current Every Day Smoker Years of Tobacco use: 30 Packs/Tins Daily: 0.5 - Caffeine Use Caffeine Use: Reports: Coffee - Recreational Drug Use Recreational Drug Use: No ED ROS GENERAL - Review of Systems Review Of Systems: Comprehensive ROS is negative, except as noted in HPI. ED EXAM,LOWER BACK PAIN/INJURY - Physical Exam Exam: See Below (see dictation) Course - Vital Signs Last Recorded V/S: Last Vital Signs Temp 98.3 F 06/14/19 20:12 Pulse 77 06/14/19 20:12 Resp 16 06/14/19 20:12 BP 132/73 06/14/19 20:12 Pulse Ox 98 06/14/19 20:12 - Orders/Labs/Meds Meds: Medications Discontinued Medications Generic Name Dose Route Start Last Admin Trade Name Freq PRN Reason Stop Dose Admin Ketorolac Tromethamine 60 mg 06/14/19 20:21 06/14/19 21:00 Toradol IM 06/14/19 20:22 60 mg ONETIME ONE Administration Orphenadrine Citrate 60 mg 06/14/19 20:21 06/14/19 21:01 Norflex IM 06/14/19 20:22 60 mg ONETIME ONE Administration Departure - Departure Time of Disposition: 22:15 Disposition: Home, Self-Care 01 Condition: Good Clinical Impression: Lumbar back pain - Discharge Information Instructions: Acute Back Pain, Adult Referrals: PCP,None [Primary Care Provider] - Forms: ED Department Discharge Additional Instructions: The following information is given to patients seen in the emergency department who are being discharged to home. This information is to outline your options for follow-up care. We provide all patients seen in our emergency department with a follow-up referral. The need for follow-up, as well as the timing and circumstances, are variable depending upon the specifics of your emergency department visit. If you don't have a primary care physician on staff, we will provide you with a referral. We always advise you to contact your personal physician following an emergency department visit to inform them of the circumstance of the visit and for follow-up with them and/or the need for any referrals to a consulting specialist. The emergency department will also refer you to a specialist when appropriate. This referral assures that you have the opportunity for follow-up care with a specialist. All of these measure are taken in an effort to provide you with optimal care, which includes your follow-up. Under all circumstances we always encourage you to contact your private physician who remains a resource for coordinating your care. When calling for follow-up care, please make the office aware that this follow-up is from your recent emergency room visit. If for any reason you are refused follow-up, please contact the [facility] Emergency Department at and asked to speak to the emergency department charge nurse. [facility] [address] [place] [address] [facility] [address] [place] [id number] Take medications as instructed, do not take while driving as it may make you drowsy Follow up with primary care provider Return to ED as needed as discussed Sepsis Event Note - Evaluation Sepsis Screening Result: No Definite Risk - Focused Exam Vital Signs: Vital Signs Temp Pulse Resp BP Pulse Ox 06/14/19 20:12 98.3 F 77 16 132/73 98 Date Exam was Performed: 06/14/19 Time Exam was Performed: 22:15
== END 2019-06-14 21:28 | disposition home or self-care (01) ==
LOC: MW.ED 19:37
DX: M54.5 Low back pain (principal); F17.210 Nicotine dependence, cigarettes, uncomplicated; Z90.49 Acquired absence of other specified parts of digestive tract; Z98.51 Tubal ligation status
CPT/HCPCS: 96372; 99283; J1885; J2360

== ENCOUNTER 2021-03-26 11:14 | Emergency (ER) | payer OTHER ==
[2021-03-26] MEDS ORDERED: Ketorolac 60 MG/2 ML SDV IM ONE (12:01)
[2021-03-26] MEDS ORDERED: Cyclobenzaprine 10 MG Tab PO ONE (12:01)
--- NOTE | 2021-03-26 12:05 | EDM.PDOC ---
ED HPI GENERAL MEDICAL PROBLEM - General Chief Complaint: Back Pain or Injury Stated Complaint: BACK HURTS/LEGS NUMB Time Seen by Provider: 03/26/21 11:37 - History of Present Illness INITIAL COMMENTS - FREE TEXT/NARRATIVE: 50-year-old female presents complaining of low back pain. Patient states that she injured her back when she was 31 years old and has had intermittent back pain since then. She states that it flared up over the last 5 days or so. Radiates down both legs. Patient states that she sometimes loses control of her urine when she sneezes or really needs to use the bathroom and this is been over several years and is unchanged. Patient denies any other bowel or bladder dysfunction. Patient states over the last several months once in a while she will notice that her leg on the right side could be dragging a little bit. This has not changed recently and there is no complaints of weakness. Patient states she is used drugs in the past but nothing with needles. Patient states that she wants had cervical conization for some atypical cells but she is not aware specifically whether or not there is actually cancer or not. Patient does have a history of L4-L5 bulge and the pain is at the same spot where she always has it. No new trauma Back Pain Score (Numeric/FACES): 9 - Related Data Allergies Allergy/AdvReac Type Severity Reaction Status Date / Time No Known Allergies Allergy Verified 03/26/21 11:37 Home Meds: Home Meds Cyclobenzaprine [Flexeril] 10 mg PO TID #30 tab 03/26/21 [Rx] Past Medical History HEENT History: Reports: 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) Other HEENT History: wears glasses Cardiovascular History: Reports: None Respiratory History: Reports: None Gastrointestinal History: Reports: 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) Other Gastrointestinal History: epigastric pain, hx colitis,cholecystitis Genitourinary History: Reports: None PROCESS COORDINATOR History: Reports: 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), Other PROCESS COORDINATOR History: hx post bleed Musculoskeletal History: Reports: Back Pain, Chronic, Fracture, 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) Other Musculoskeletal History: hx fx lt hand and fx ankle, spinal stenosis Neurological History: Reports: Concussion Psychiatric History: Reports: Anxiety Endocrine/Metabolic History: Reports: 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) Other Endocrine/Metabolic History: hx nodule on thyroid Hematologic History: Reports: Blood Transfusion(s), 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) Other Hematologic History: bleeds easily Immunologic History: Reports: None Oncologic (Cancer) History: Reports: None Dermatologic History: Reports: None - Infectious Disease History Infectious Disease History: Reports: None - Past Surgical History Head Surgeries/Procedures: Reports: None HEENT Surgical History: Reports: None Cardiovascular Surgical History: Reports: None GI Surgical History: Reports: Cholecystectomy Female Surgical History: Reports: Cervical Conization, D&C, Tubal Ligation Endocrine Surgical History: Reports: None Neurological Surgical History: Reports: None Musculoskeletal Surgical History: Reports: Shoulder Surgery Other Musculoskeletal Surgeries/Procedures:: left shoulder surgery for torn tendon Oncologic Surgical History: Reports: None Social & Family History - Family History Family Medical History: No Pertinent Family History - Caffeine Use Caffeine Use: Reports: Coffee ED ROS GENERAL - Review of Systems Review Of Systems: See Below Constitutional: Denies: Fever Respiratory: Denies: Shortness of Breath, Cough Cardiovascular: Denies: Chest Pain GI/Abdominal: Denies: Abdominal Pain, Stool Incontinence : Denies: Urinary Retention Musculoskeletal: Reports: Back Pain Skin: Denies: Rash Neurological: Denies: Weakness ED EXAM, GENERAL - Physical Exam Exam: See Below Free Text/Narrative:: CONSTITUTIONAL: well appearing in no acute distress SKIN: dry, and intact without rash HENT: Normocephalic, atraumatic, NECK: normal range of motion PULMONARY: normal chest rise and fall, no respiratory distress or stridor NEUROLOGIC: normal speech, patient states that intermittently there is some numbness on her right thigh but at this point light touch 5 out of 5 power bilateral equal and symmetric in lower extremity throughout without deficit. MUSCULOSKELETAL: no gross deformities, atraumatic mild midline tenderness PSYCHIATRIC: normal mood and affect Course - Vital Signs Text/Narrative:: Differential diagnosis: Acute on chronic back pain, fracture, malignancy, epidural abscess, kidney stone, degenerative joint disease, herniated disc, radiculopathy, other Patient presents complaining of acute on chronic back pain. Patient has good strength bilaterally and has no new bowel or bladder dysfunction. Patient given Toradol and Flexeril here in the emergency department. Strict return precautions discussed and patient will need PCP follow-up for pain management and consideration of outpatient MRI. No emergent indication for MRI at this time as there is no new bowel or bladder dysfunction or leg weakness Last Recorded V/S: Last Vital Signs Temp 36.8 C 10/24/21 11:37 Pulse 78 03/26/21 11:37 Resp 17 03/26/21 11:37 BP 146/85 H 03/26/21 11:37 Pulse Ox 97 03/26/21 11:37 - Orders/Labs/Meds Meds: Medications Discontinued Medications Generic Name Dose Route Start Last Admin Trade Name Gus PRN Reason Stop Dose Admin Cyclobenzaprine HCl 10 mg 03/26/21 12:01 Cyclobenzaprine 10 Mg Tab PO 03/26/21 12:02 ONETIME ONE Ketorolac Tromethamine 60 mg 03/26/21 12:01 Ketorolac 60 Mg/2 Ml Sdv IM 03/26/21 12:02 ONETIME ONE Departure - Departure Time of Disposition: 12:11 Disposition: Home, Self-Care 01 Condition: Good Clinical Impression: Low back pain - Discharge Information Instructions: Acute Back Pain, Adult Referrals: Nighat Oliva BUSINESS MACHINES TEACHER [Primary Care Provider] - Forms: ED Department Discharge Additional Instructions: Return for any difficulty with bowel movement or urination that is new or different. Return for any leg weakness. Take ibuprofen 600 mg 3 times a day for pain and inflammation and Flexeril as needed on top of that. Follow-up with a primary care doctor this coming week for reevaluation and consideration of outpatient MRI and continued treatment and management. The following information is given to patients seen in the emergency department who are being discharged to home. This information is to outline your options for follow-up care. We provide all patients seen in our emergency department with a follow-up referral. The need for follow-up, as well as the timing and circumstances, are variable depending upon the specifics of your emergency department visit. If you don't have a primary care physician on staff, we will provide you with a referral. We always advise you to contact your personal physician following an e mergency department visit to inform them of the circumstance of the visit and for follow-up with them and/or the need for any referrals to a consulting specialist. The emergency department will also refer you to a specialist when appropriate. This referral assures that you have the opportunity for follow-up care with a specialist. All of these measure are taken in an effort to provide you with op timal care, which includes your follow-up. Primary care clinics in the area: [facility] - Primary Care [address] [place] [id number] [facility] [address] [place] [id number] Under all circumstances we always encourage you to contact your private physician who remains a resource for coordinating your care. When calling for follow-up care, please make the office aware that this follow-up is from your recent emergency room visit. If for any reason you are refused follow-up, please contact the [facility] Emergency Department at and asked to speak to the emergency department charge nurse. Sepsis Event Note (ED) - Evaluation Sepsis Screening Result: No Definite Risk - Focused Exam Vital Signs: Vital Signs Temp Pulse Resp BP Pulse Ox 03/26/21 11:37 36.8 C 78 17 146/85 H 97
[2021-03-26 12:38] VITALS: BP 137/91; PULSE 73
== END 2021-03-26 12:45 | disposition home or self-care (01) ==
LOC: MW.ED 11:14
DX: M54.50 Low back pain, unspecified (principal)
CPT/HCPCS: 96372; 99283; A9270; J1885

== ENCOUNTER 2022-08-24 17:39 | Emergency (ER) | payer OTHER ==
[2022-08-24 20:13] VITALS: BP 142/90; PULSE 90
== END 2022-08-24 19:31 | disposition home or self-care (01) ==
LOC: MW.ED 17:39
DX: S09.90XA Unspecified injury of head, initial encounter (principal); W00.0XXA Fall on same level due to ice and snow, initial encounter
CPT/HCPCS: 70450; 70450-26; 72125; 72125-26; 99283; 99284